=== PATIENT | female | born 1925 | race Caucasian/White ===

== ENCOUNTER 2016-12-03 21:27 | Emergency (ER) | payer OTHER ==
[~2016-12-03] VITALS: Ht 162.6 cm; Wt 59.2 kg
[~2016-12-03 21:27] MED LIST: LO-DOSE ASPIRIN81 M1 PO; LORTAB 5-325 M1 EACH PO
[2016-12-03 22:16] LABS: HEMATOCRIT 35.1 % (36.0-46.0); MCH 31.5 PG (29.0-34.0); MCV 95.4 FL (83-99); MEAN PLAT.VOLUME 11.3 uM^3 (9.5-12.4); PLATELET COUNT 182 K/uL (156-360); RBC DIS.WIDTH-CV 13.1 % (11.8-14.6); RBC DIS.WIDTH-SD 43.9 % (39-53); RED BLOOD COUNT 3.68 M/uL (3.80-5.20); WHITE BLOOD COUNT 7.4 K/uL (4.1-10.2)
[2016-12-03 22:27] LABS: CHLORIDE 110 mEq/L (99-109); POTASSIUM 4.2 mEq/L (3.7-5.4); SODIUM 144 mEq/L (136-147)
[2016-12-03 22:28] LABS: GLUCOSE 118 mg/dL (70-99)
[2016-12-03 22:30] LABS: ANION GAP 10 MEQ/L (2-14)
[2016-12-03 22:32] LABS: GFR ESTIMATE (CALCULATED) 50 mL/min/
[2016-12-03 22:33] LABS: UREA NITROGEN (BUN) 18 mg/dL (9-23)
[2016-12-03] MEDS ORDERED: KEFLEX500 MG PO (23:24)
[2016-12-03 23:45] VITALS: BP 179/97
== END 2016-12-03 23:52 | disposition home or self-care (01) ==
LOC: EME → EDBD 21:27 → EME 23:52
PROVIDERS: Emergency Medicine
PROC: 2Y41X5Z Packing of Nasal Region using Packing Material (ICD-10-PCS; principal; 2016-12-03)
DX: R04.0 Epistaxis (principal); F17.200 Nicotine dependence, unspecified, uncomplicated
CPT/HCPCS: 80048; 85027; 86850; 86900; 86901; 99281; 99284

== ENCOUNTER 2016-12-05 08:32 | Emergency (ER) | payer OTHER ==
[~2016-12-05] VITALS: Ht 162.6 cm; Wt 57.9 kg
[~2016-12-05 08:32] MED LIST changes: +KEFLEX500 MG PO
[2016-12-05 09:33] LABS: EOSINOPHIL (%) 0.5 % (0-5); EOSINOPHIL COUNT 0.1 K/uL (0-0.3); HEMATOCRIT 37.2 % (36.0-46.0); IMMATURE GRANULOCYTE (%) 0.2 % (0.0-0.7); IMMATURE GRANULOCYTE COUNT 0.2 K/uL; LYMPHOCYTE COUNT 1.1 K/uL (1.0-2.8); MCH 30.8 PG (29.0-34.0); MCHC 32.5 G/DL (30.0-36.0); MCV 94.7 FL (83-99); MEAN PLAT.VOLUME 11.5 uM^3 (9.5-12.4); MONOCYTE (%) 4.7 % (3-12); MONOCYTE COUNT 0.5 K/uL (0-0.8); NEUTROPHIL COUNT 9.7 K/uL (1.8-6.4); PLATELET COUNT 188 K/uL (156-360); RBC DIS.WIDTH-CV 12.9 % (11.8-14.6); RBC DIS.WIDTH-SD 42.9 % (39-53); RED BLOOD COUNT 3.93 M/uL (3.80-5.20)
[2016-12-05 09:34] LABS: WHITE BLOOD COUNT 11.4 K/uL (4.1-10.2)
[2016-12-05 09:43] LABS: CHLORIDE 106 mEq/L (99-109); POTASSIUM 3.9 mEq/L (3.7-5.4); SODIUM 141 mEq/L (136-147)
[2016-12-05 09:47] LABS: ANION GAP 14 MEQ/L (2-14); TOTAL BILIRUBIN 0.5 mg/dL (0.0-1.0)
[2016-12-05 09:48] LABS: GLUCOSE 180 mg/dL (70-99)
[2016-12-05 09:49] LABS: ALKALINE PHOSPHATASE 65 IU/L (3-129); GFR ESTIMATE (CALCULATED) 50 mL/min/
[2016-12-05 09:50] LABS: UREA NITROGEN (BUN) 15 mg/dL (9-23)
[2016-12-05 10:34] LABS: ADD MIUA? YES; BILIRUBIN NEGATIVE; BLOOD MODERATE; GLUCOSE (STRIP) NEGATIVE; KETONES NEGATIVE; LEUKOCYTES TRACE; NITRITE NEGATIVE; PH, URINE 6.5 (5-8); PROTEIN (STRIP) TRACE; SPECIFIC GRAVITY 1.013 (1.000-1.030); UROBILINOGEN 0.2 MG/DL (0.2-1.0)
[2016-12-05 10:36] LABS: COLOR LT YELLOW ((YELLOW))
[2016-12-05 10:42] LABS: BACTERIA NONE SEEN /HPF; EPITHELIAL CELLS RARE /HPF; MUCUS NONE SEEN /LPF; WHITE BLOOD CELLS NONE SEEN /HPF (0-5)
[2016-12-05] MEDS ORDERED: ZOFRAN ODT4 MG PO (15:05)
[2016-12-05 15:32] VITALS: BP 185/82
== END 2016-12-05 15:33 | disposition home or self-care (01) ==
LOC: EME 08:32
PROVIDERS: Emergency Medicine
DX: R11.10 Vomiting, unspecified (principal); R19.7 Diarrhea, unspecified; Z79.82 Long term (current) use of aspirin; F17.200 Nicotine dependence, unspecified, uncomplicated
CPT/HCPCS: 74022; 74177; 80053; 81003; 85025; 87493; 99281; 99285; J2405; J7030